=== PATIENT | female | born 1945 | race African-American/Black ===

== ENCOUNTER 2016-03-31 10:49 | Inpatient (IN) | payer MEDICARE, MEDICAID ==
[~2016-03-31] VITALS: Ht 175.3 cm; Wt 112.0 kg
[~2016-03-31 10:49] MED LIST: CLON1PAT11; DIOVAN PO; GLIMEPIRIDE PO; HUMALIN SUBCUT; HYDROCHLOROTHIAZIDE; INS7030 SUBCUT; INSULIN; IRON18TA PO; LISINOPRIL PO; SIMVASTATIN PO; [UNRECOGNIZED DRUG - OTHER] PO
[2016-03-31] MEDS ORDERED: ASPIRIN 81MG TABLET PO STA (11:14)
[2016-03-31] MEDS ORDERED: ONDANSETRON HCL 4MG/2ML VIAL IV STA (11:14)
[2016-03-31 11:36] LABS: BASOPHILS % 0.7 % (0.0-2.0); EOSINOPHILS % 1.8 % (0.0-5.0); HEMATOCRIT. 32.3 % (36.0-48.0); HEMOGLOBIN. 10.7 g/dL (12.0-16.0); LYMPHOCYTES % 14.8 % (20.0-50.0); MEAN CORPUSCULAR HEMOGLOBIN 28.3 pg (28.0-32.0); MEAN CORPUSCULAR HGB CONC 33.3 g/dL (31.0-37.0); MEAN CORPUSCULAR VOLUME 85.2 fL (81.0-99.0); MEAN PLATELET VOLUME 8.2 fl (7.4-10.4); MONOCYTES % 6.9 % (2.0-8.0); NEUTROPHILS % 75.8 % (40.0-76.0); PLATELET 272 x1000/uL (130-400); RED BLOOD CELL COUNT 3.79 mill/uL (4.2-5.4); RED CELL DISTRIBUTION WIDTH 14.9 % (11.6-14.6); WHITE BLOOD COUNT 11.4 x1000/uL (4.5-11.0)
[2016-03-31 11:53] LABS: ALANINE AMINOTRANSFERASE 17 IU/L (13-61); ALBUMIN 3.3 g/dL (3.4-5.0); ANION GAP 12; CALCIUM 8.8 mg/dL (8.5-10.1); CARBON DIOXIDE 21 mEq/L (21-32); CHLORIDE 111 mEq/L (98-107); CREATINE KINASE 146 IU/L (26-192); INDEX HEMOLYSI 4 (1-3); INDEX ICTERIC 1 (1-4); INDEX LIPEMIC 1 (1-3); LIPASE 125 IU/L (73-393); NT PRO B-TYPE NATRIURETIC PEP 493 pg/mL (5-125); TROPONIN I < 0.02 ng/mL (0.00-0.04); UREA NITROGEN BLOOD 28 mg/dL (7-21); eGFR 48 mL/min (>60)
[2016-03-31] MEDS ORDERED: ASPIRIN 81MG TABLET PO NR (12:00)
[2016-03-31 12:24] LABS: D-DIMER 0.76 mg/L FEU (<0.50); PARTIAL THROMBOPLASTIN TIME 26.8 sec (24.0-34.0)
[2016-03-31] MEDS ORDERED: AMLO10TA80 PO (14:59)
[2016-03-31] MEDS ORDERED: METO50TA5 PO (14:59)
[2016-03-31 15:02] VITALS: BP 130/74
[2016-03-31] MEDS ORDERED: HYDROCODONE/ACETAMINOPHEN 5/325MG TABLET PO PRN (15:45)
[2016-03-31] MEDS ORDERED: ACETAMINOPHEN 325MG TABLET PO PRN (15:45)
[2016-03-31] MEDS ORDERED: DEXTROSE 50% WATER 50ML SYRINGE IV PRN (15:45)
[2016-03-31] MEDS ORDERED: CLONIDINE 0.1MG TABLET PO PRN (15:45)
[2016-03-31] MEDS ORDERED: DOCUSATE SODIUM 100MG CAPSULE PO PRN (15:45)
[2016-03-31] MEDS ORDERED: ONDANSETRON HCL 4MG/2ML VIAL IV PRN (15:45)
[2016-03-31 16:00] VITALS: BP 130/86
[2016-03-31] MEDS: AMLODIPINE 10MG TABLET PO SCH (17:06)
[2016-03-31] MEDS: BLOOD SUGAR DIAGNOSTIC STRIP TEST SCH ×2 (17:13→21:00)
[2016-03-31 17:23] LABS: CLARITY URINE CLEAR (CLEAR); COLOR URINE YELLOW (YELLOW); GLUCOSE URINE NEGATIVE (NEGATIVE); KETONES URINE NEGATIVE (NEGATIVE); LEUKOCYTE ESTERASE URINE NEGATIVE (NEGATIVE); NITRITE URINE NEGATIVE (NEGATIVE); OCCULT BLOOD URINE NEGATIVE (NEGATIVE); PH URINE 5.5 (4.5-8.0); PROTEIN URINE NEGATIVE (NEGATIVE); SPECIFIC GRAVITY URINE 1.011 (1.005-1.030); UROBILINOGEN URINE 0.2 E.U./dL (0.2-1.0)
[2016-03-31] MEDS: INSULIN LISPRO 100 UNITS/ML SUBCUT SCH ×2 (17:25→21:00)
[2016-03-31 17:33] LABS: *AMPHETAMINES SCREEN URINE NEGATIVE (NEGATIVE); *BARBITURATES SCREEN URINE NEGATIVE (NEGATIVE); *BENZODIAZEPINES SCREEN URINE NEGATIVE (NEGATIVE); *COCAINE SCREEN URINE NEGATIVE (NEGATIVE); CANNABINOID URINE SCREEN NEGATIVE (NEGATIVE); ECSTASY MDMA SCREEN URINE NEGATIVE (NEGATIVE); METHADONE URINE SCREEN NEGATIVE (NEGATIVE); OPIATES URINE SCREEN NEGATIVE (NEGATIVE); PHENCYCLIDINE URINE SCREEN NEGATIVE (NEGATIVE)
[2016-03-31] MEDS: INS NPH/REG HM 70-30 100 UNITS/ML 10ML VIAL (HUMULIN 70-30) SUBCUT SCH (17:40)
[2016-03-31 20:00] VITALS: BP 147/71
[2016-03-31 21:09] LABS: CALCIUM 8.7 mg/dL (8.5-10.1)
[2016-03-31] MEDS: ENOXAPARIN 30MG/0.3ML SYR SUBCUT SCH (21:17)
[2016-03-31] MEDS: METOPROLOL TARTRATE 50MG TABLET PO SCH (21:17)
[2016-04-01 00:12] LABS: CREATINE KINASE 116 IU/L (26-192); CREATINE KINASE MB FRACTION 1.3 ng/mL (0.5-3.6); INDEX HEMOLYSI 1 (1-3); TROPONIN I < 0.02 ng/mL (0.00-0.04)
[2016-04-01 00:25] VITALS: BP 140/78
[2016-04-01 04:00] VITALS: BP 136/71
[2016-04-01 08:00] VITALS: BP 129/98
[2016-04-01] MEDS: INSULIN LISPRO 100 UNITS/ML SUBCUT SCH ×4 (08:10→20:47)
[2016-04-01 08:12] LABS: CHLORIDE 109 mEq/L (98-107); INDEX HEMOLYSI 1 (1-3); INDEX ICTERIC 1 (1-4); INDEX LIPEMIC 1 (1-3)
[2016-04-01] MEDS: BLOOD SUGAR DIAGNOSTIC STRIP TEST SCH ×4 (08:21→20:47)
[2016-04-01 08:33] LABS: ALANINE AMINOTRANSFERASE 13 IU/L (13-61); ANION GAP 16; CALCIUM 8.3 mg/dL (8.5-10.1); CARBON DIOXIDE 20 mEq/L (21-32); CREATINE KINASE 101 IU/L (26-192); CREATINE KINASE MB FRACTION 0.9 ng/mL (0.5-3.6); T4 FREE 1.14 ng/dL (0.76-1.46); TROPONIN I < 0.02 ng/mL (0.00-0.04); UREA NITROGEN BLOOD 24 mg/dL (7-21); eGFR 52 mL/min (>60)
[2016-04-01] MEDS: AMLODIPINE 10MG TABLET PO SCH (09:28)
[2016-04-01] MEDS: METOPROLOL TARTRATE 50MG TABLET PO SCH ×2 (09:28→20:43)
[2016-04-01] MEDS: ASPIRIN 81MG EC TABLET PO SCH (09:28)
[2016-04-01] MEDS: ENOXAPARIN 30MG/0.3ML SYR SUBCUT SCH ×2 (09:29→20:44)
[2016-04-01] MEDS: INS NPH/REG HM 70-30 100 UNITS/ML 10ML VIAL (HUMULIN 70-30) SUBCUT SCH ×2 (09:53→18:47)
[2016-04-01 12:00] VITALS: BP 130/91
[2016-04-01 16:00] VITALS: BP 116/81
[2016-04-01 20:00] VITALS: BP 121/89
[2016-04-02 00:03] VITALS: BP 118/62
[2016-04-02 04:00] VITALS: BP 141/89
[2016-04-02] MEDS: BLOOD SUGAR DIAGNOSTIC STRIP TEST SCH (07:39)
[2016-04-02] MEDS: INSULIN LISPRO 100 UNITS/ML SUBCUT SCH (07:40)
[2016-04-02 08:00] VITALS: BP 133/81
[2016-04-02] MEDS: METOPROLOL TARTRATE 50MG TABLET PO SCH (09:00)
[2016-04-02] MEDS: ENOXAPARIN 30MG/0.3ML SYR SUBCUT SCH (09:00)
[2016-04-02] MEDS: ASPIRIN 81MG EC TABLET PO SCH (10:06)
[2016-04-02] MEDS: AMLODIPINE 10MG TABLET PO SCH (10:06)
[2016-04-02] MEDS: INS NPH/REG HM 70-30 100 UNITS/ML 10ML VIAL (HUMULIN 70-30) SUBCUT SCH (10:18)
[2016-04-02 12:00] VITALS: BP 136/99
[2016-04-02 12:26] VITALS: BP 138/99
== END 2016-04-02 13:50 | disposition home or self-care (01) | DRG 313 ==
LOC: ER 12:05 → 7WST 12:58
PROVIDERS: ADMIT Internal Medicine; ATTEND Internal Medicine
DX: R07.89 Other chest pain (principal); E11.22 Type 2 diabetes mellitus with diabetic chronic kidney disease; E66.01 Morbid (severe) obesity due to excess calories; I12.9 Hypertensive chronic kidney disease with stage 1 through stage 4 chronic kidney disease, or unspecified chronic kidney disease; N18.2 Chronic kidney disease, stage 2 (mild); Z88.0 Allergy status to penicillin; Z88.8 Allergy status to other drugs, medicaments and biological substances; Z68.36 Body mass index [BMI] 36.0-36.9, adult; Z79.899 Other long term (current) drug therapy; Z90.49 Acquired absence of other specified parts of digestive tract; Z90.710 Acquired absence of both cervix and uterus
CPT/HCPCS: 36415; 71010; 80048; 80053; 80305; 81003; 82550; 82553; 82962; 83690; 83880; 84439; 84443; 84484; 85025; 85379; 85610; 85730; 93005; 93306; 93970; 99285; J1650; J1815

== ENCOUNTER 2016-10-24 13:52 | Emergency (ER) | payer MEDICARE, MEDICAID ==
[~2016-10-24] VITALS: Ht 175.3 cm; Wt 110.0 kg
[~2016-10-24 13:52] MED LIST changes: +AMLO10TA80 PO; +METO50TA5 PO
[2016-10-24 13:59] VITALS: BP 155/52
[2016-10-24] MEDS ORDERED: IBUPROFEN 600MG TABLET PO STA (15:46)
== END 2016-10-24 17:50 | disposition home or self-care (01) ==
LOC: ER 16:26
DX: M70.22 Olecranon bursitis, left elbow (principal); E11.9 Type 2 diabetes mellitus without complications; I10 Essential (primary) hypertension; E78.00 Pure hypercholesterolemia, unspecified; Z79.4 Long term (current) use of insulin; Z90.49 Acquired absence of other specified parts of digestive tract; Z90.710 Acquired absence of both cervix and uterus
CPT/HCPCS: 73080; 99284

== ENCOUNTER 2016-12-10 16:40 | Emergency (ER) | payer MEDICARE, MEDICAID ==
[~2016-12-10] VITALS: Ht 172.7 cm; Wt 110.0 kg
[2016-12-10] MEDS ORDERED: ASPIRIN 81MG TABLET PO ONE (18:30)
[2016-12-10 18:42] LABS: BASOPHILS % 0.5 % (0.0-2.0); EOSINOPHILS % 1.7 % (0.0-5.0); HEMATOCRIT. 32.2 % (36.0-48.0); HEMOGLOBIN. 10.7 g/dL (12.0-16.0); LYMPHOCYTES % 14.3 % (20.0-50.0); MEAN CORPUSCULAR HEMOGLOBIN 28.6 pg (28.0-32.0); MEAN CORPUSCULAR VOLUME 85.9 fL (81.0-99.0); MEAN PLATELET VOLUME 7.9 fl (7.4-10.4); MONOCYTES % 8.6 % (2.0-8.0); NEUTROPHILS % 74.9 % (40.0-76.0); PLATELET 215 x1000/uL (130-400); RED BLOOD CELL COUNT 3.75 mill/uL (4.2-5.4); RED CELL DISTRIBUTION WIDTH 14.5 % (11.6-14.6)
[2016-12-10 18:47] LABS: CARBON DIOXIDE 23 mEq/L (21-32); CHLORIDE 110 mEq/L (98-107)
[2016-12-10 18:49] LABS: D-DIMER 0.88 mg/L FEU (<0.50); PROTHROMBIN TIME 10.3 sec (9.4-11.6)
[2016-12-10 18:54] LABS: TROPONIN I < 0.02 ng/mL (0.00-0.04)
[2016-12-10 22:05] VITALS: BP 130/50
== END 2016-12-10 22:32 | disposition home or self-care (01) ==
LOC: ER 20:14 → CANBEDREQ 23:36
DX: M79.602 Pain in left arm (principal); E11.65 Type 2 diabetes mellitus with hyperglycemia; I10 Essential (primary) hypertension; N28.9 Disorder of kidney and ureter, unspecified; D64.9 Anemia, unspecified; Z79.4 Long term (current) use of insulin; Z88.0 Allergy status to penicillin; Z90.710 Acquired absence of both cervix and uterus; Z90.49 Acquired absence of other specified parts of digestive tract
CPT/HCPCS: 36415; 71010; 80053; 83880; 84484; 85025; 85379; 85610; 93005; 93971; 99285

== ENCOUNTER → 2017-02-21 | Outpatient (CLI) | payer MEDICARE, MEDICAID ==
[~2017-02-21] MED LIST changes: +METO-539 PO; -METO50TA5 PO
== END | disposition home or self-care (01) ==
LOC: MAMMO 09:43
PROVIDERS: ATTEND Internal Medicine
DX: Z12.31 Encounter for screening mammogram for malignant neoplasm of breast (principal)
CPT/HCPCS: 77067

== ENCOUNTER 2018-04-24 14:07 | Emergency (ER) | payer MEDICARE, MEDICAID ==
[~2018-04-24] VITALS: Ht 175.3 cm; Wt 112.0 kg
[2018-04-24 15:31] LABS: CLARITY URINE CLOUDY (CLEAR); COLOR URINE YELLOW (YELLOW); KETONES URINE NEGATIVE (NEGATIVE); LEUKOCYTE ESTERASE URINE 1+ (NEGATIVE); NITRITE URINE NEGATIVE (NEGATIVE); OCCULT BLOOD URINE NEGATIVE (NEGATIVE); PH URINE 5.5 (4.5-8.0); PROTEIN URINE NEGATIVE (NEGATIVE); SPECIFIC GRAVITY URINE 1.016 (1.005-1.030)
[2018-04-24] MEDS ORDERED: LEVOFLOXACIN 500MG TABLET PO ONE (15:45)
[2018-04-24 16:35] VITALS: BP 138/66
== END 2018-04-24 16:40 | disposition home or self-care (01) ==
LOC: ER 14:07
DX: N39.0 Urinary tract infection, site not specified (principal); I10 Essential (primary) hypertension; E66.01 Morbid (severe) obesity due to excess calories; Z68.36 Body mass index [BMI] 36.0-36.9, adult
CPT/HCPCS: 74176; 99284

== ENCOUNTER 2018-12-11 13:13 | Emergency (ER) | payer MEDICARE, MEDICAID ==
[~2018-12-11] VITALS: Ht 175.3 cm; Wt 108.0 kg
[2018-12-11] MEDS ORDERED: SODIUM CHLORIDE 0.9% 1,000 ML IV ONE (15:46)
[2018-12-11 16:44] LABS: CLARITY URINE CLEAR (CLEAR); COLOR URINE YELLOW (YELLOW); KETONES URINE NEGATIVE (NEGATIVE); LEUKOCYTE ESTERASE URINE NEGATIVE (NEGATIVE); NITRITE URINE NEGATIVE (NEGATIVE); OCCULT BLOOD URINE NEGATIVE (NEGATIVE); PROTEIN URINE NEGATIVE (NEGATIVE); SPECIFIC GRAVITY URINE 1.015 (1.005-1.030)
[2018-12-11 17:13] LABS: BASOPHILS % 0.7 % (0.0-2.0); EOSINOPHILS % 1.4 % (0.0-5.0); HEMATOCRIT. 34.2 % (36.0-48.0); LYMPHOCYTES % 14.7 % (20.0-50.0); MEAN CORPUSCULAR HEMOGLOBIN 28.7 pg (28.0-32.0); MEAN CORPUSCULAR VOLUME 89.1 fL (81.0-99.0); MEAN PLATELET VOLUME 8.2 fl (7.4-10.4); MONOCYTES % 8.9 % (2.0-8.0); NEUTROPHILS % 74.3 % (40.0-76.0); PLATELET 226 x1000/uL (130-400); RED BLOOD CELL COUNT 3.84 mill/uL (4.2-5.4)
[2018-12-11 17:14] LABS: CHLORIDE 112 mEq/L (98-107)
[2018-12-11 17:17] LABS: INR 0.9; PROTHROMBIN TIME 9.5 sec (9.6-11.0)
[2018-12-11] MEDS ORDERED: IOHEXOL-300 100 ML BOTTLE ONE (18:55)
[2018-12-11] MEDS ORDERED: KETOROLAC 30MG/ML VIAL IV ONE (19:30)
[2018-12-11 20:22] VITALS: BP 161/84
== END 2018-12-11 20:29 | disposition home or self-care (01) ==
LOC: ER 13:13
DX: R10.31 Right lower quadrant pain (principal); E11.649 Type 2 diabetes mellitus with hypoglycemia without coma; I10 Essential (primary) hypertension; Z90.49 Acquired absence of other specified parts of digestive tract; Z90.710 Acquired absence of both cervix and uterus; Z79.4 Long term (current) use of insulin; Z88.0 Allergy status to penicillin
CPT/HCPCS: 36415; 74177; 80053; 81003; 82962; 83690; 85025; 85610; 96374; 99284; J1885; J7030; Q9967

== ENCOUNTER 2018-12-24 12:16 | Inpatient (IN) | payer MEDICARE, MEDICAID ==
[~2018-12-24] VITALS: Ht 175.3 cm; Wt 108.0 kg
[2018-12-24] MEDS ORDERED: MORPHINE SULFATE 4 MG/ML CPJ (NOT FOR IM USE) IV STA (14:24)
[2018-12-24] MEDS ORDERED: ONDANSETRON HCL 4MG/2ML INJ IV STA (14:24)
[2018-12-24] MEDS ORDERED: SODIUM CHLORIDE 0.9% 1,000 ML IV ONE (14:24)
[2018-12-24 15:14] LABS: BASOPHILS % 0.7 % (0.0-2.0); EOSINOPHILS % 0.6 % (0.0-5.0); HEMATOCRIT. 33.4 % (36.0-48.0); LYMPHOCYTES % 8.9 % (20.0-50.0); MEAN CORPUSCULAR HEMOGLOBIN 29.3 pg (28.0-32.0); MEAN CORPUSCULAR VOLUME 89.2 fL (81.0-99.0); MEAN PLATELET VOLUME 7.7 fl (7.4-10.4); MONOCYTES % 7.8 % (2.0-8.0); PLATELET 245 x1000/uL (130-400); RED BLOOD CELL COUNT 3.74 mill/uL (4.2-5.4); RED CELL DISTRIBUTION WIDTH 15.6 % (11.6-14.6)
[2018-12-24 15:15] LABS: CHLORIDE 109 mEq/L (98-107)
[2018-12-24 15:22] LABS: PROTHROMBIN TIME 10.2 sec (9.6-11.0)
[2018-12-24 15:23] LABS: CLARITY URINE CLOUDY (CLEAR); COLOR URINE YELLOW (YELLOW); KETONES URINE NEGATIVE (NEGATIVE); LEUKOCYTE ESTERASE URINE NEGATIVE (NEGATIVE); NITRITE URINE NEGATIVE (NEGATIVE); OCCULT BLOOD URINE NEGATIVE (NEGATIVE); PH URINE 5.5 (4.5-8.0); PROTEIN URINE TRACE (NEGATIVE); SPECIFIC GRAVITY URINE 1.015 (1.005-1.030)
[2018-12-24] MEDS ORDERED: ACETAMINOPHEN 650MG SUPP PR PRN (17:00)
[2018-12-24] MEDS ORDERED: NA PHOS,M-B/NA PHOS,DI-BA ENEMA 118ML PR PRN (17:00)
[2018-12-24] MEDS ORDERED: LORAZEPAM 0.5MG TABLET PO PRN (17:00)
[2018-12-24] MEDS ORDERED: IPRATROPIUM/ALBUTEROL 0.5-3(2.5)MG/3ML NEB NEB PRN (17:00)
[2018-12-24] MEDS ORDERED: DOCUSATE SODIUM 100MG CAPSULE PO PRN (17:00)
[2018-12-24] MEDS ORDERED: ONDANSETRON HCL 4MG/2ML INJ IV PRN (17:00)
[2018-12-24] MEDS ORDERED: DEXTROSE 50% WATER 50ML SYRINGE IV PRN (17:00)
[2018-12-24] MEDS ORDERED: GUAIFENESIN 200MG/10ML SUGAR FREE UDC PO PRN (17:00)
[2018-12-24] MEDS ORDERED: DIPHENHYDRAMINE 50MG/ML VIAL IV PRN (17:00)
[2018-12-24] MEDS ORDERED: ACETAMINOPHEN 325MG TABLET PO PRN (17:00)
[2018-12-24] MEDS ORDERED: HYDROCODONE/ACETAMINOPHEN 5/325MG TABLET PO PRN (17:00)
[2018-12-24] MEDS ORDERED: CLONIDINE 0.1MG TABLET PO PRN (17:00)
[2018-12-24] MEDS ORDERED: MAGNESIUM/ALUMINUM HYDROXIDE/SIMETHICONE 30ML UDC PO PRN (17:00)
[2018-12-24] MEDS ORDERED: MORPHINE SULFATE 2 MG/ML CPJ (NOT FOR IM USE) IV PRN (17:00)
[2018-12-24] MEDS ORDERED: BLOOD SUGAR DIAGNOSTIC STRIP TEST SCH (18:15)
[2018-12-24] MEDS ORDERED: LEVOFLOXACIN 500MG PREMIX 100 ML IV NR (18:30)
[2018-12-25] MEDS: INSULIN LISPRO 100 UNITS/ML SUBCUT SCH ×3 (00:14→12:37)
[2018-12-25 00:45] VITALS: BP 151/55
[2018-12-25 02:53] VITALS: BP 151/55
[2018-12-25 04:00] VITALS: BP 124/54
[2018-12-25 06:40] LABS: BASOPHILS % 0.4 % (0.0-2.0); EOSINOPHILS % 0.8 % (0.0-5.0); HEMATOCRIT. 30.7 % (36.0-48.0); HEMOGLOBIN. 10.1 g/dL (12.0-16.0); LYMPHOCYTES % 9.4 % (20.0-50.0); MEAN CORPUSCULAR HEMOGLOBIN 29.1 pg (28.0-32.0); MEAN CORPUSCULAR VOLUME 88.3 fL (81.0-99.0); MEAN PLATELET VOLUME 7.9 fl (7.4-10.4); MONOCYTES % 8.6 % (2.0-8.0); NEUTROPHILS % 80.8 % (40.0-76.0); PLATELET 237 x1000/uL (130-400); RED BLOOD CELL COUNT 3.48 mill/uL (4.2-5.4); RED CELL DISTRIBUTION WIDTH 15.7 % (11.6-14.6)
[2018-12-25 06:52] LABS: CHLORIDE 111 mEq/L (98-107)
[2018-12-25 07:03] LABS: LDL CHOLESTEROL 57 mg/dL (5-100)
[2018-12-25 07:05] LABS: HDL CHOLESTEROL 39 mg/dL (40-59); T4 FREE 1.25 ng/dL (0.76-1.46)
[2018-12-25 08:00] VITALS: BP 126/63
[2018-12-25] MEDS ORDERED: ENOXAPARIN 30MG/0.3ML SYR SUBCUT SCH (09:00)
[2018-12-25 15:25] VITALS: BP 99/64
[2018-12-25] MEDS ORDERED: LEVOFLOXACIN 250MG PREMIX 50 ML IV SCH ×2 (18:00)
== END 2018-12-25 16:11 | disposition home or self-care (01) | DRG 552 ==
LOC: ER 12:16 → 6EST 16:41 → ENRESERV 23:51
PROVIDERS: ADMIT Internal Medicine; ATTEND Internal Medicine
DX: M51.26 Other intervertebral disc displacement, lumbar region (principal); N39.0 Urinary tract infection, site not specified; D64.9 Anemia, unspecified; E11.9 Type 2 diabetes mellitus without complications; E78.5 Hyperlipidemia, unspecified; G89.29 Other chronic pain; M47.816 Spondylosis without myelopathy or radiculopathy, lumbar region; I10 Essential (primary) hypertension; Z79.4 Long term (current) use of insulin; Z79.899 Other long term (current) drug therapy; Z90.710 Acquired absence of both cervix and uterus; Z88.0 Allergy status to penicillin; Z88.8 Allergy status to other drugs, medicaments and biological substances; Z90.49 Acquired absence of other specified parts of digestive tract
CPT/HCPCS: 36415; 72146; 72148; 80061; 81003; 82962; 83036; 83605; 84439; 84443; 93970; 96361; 96365; 96366; 96372; 96375; 97162; 97535; 99285; J1650; J1815; J1956; J2270; J2405; J7030

== ENCOUNTER 2019-10-10 18:32 | Inpatient (IN) | payer MEDICARE, MEDICAID ==
[~2019-10-10] VITALS: Ht 175.3 cm; Wt 109.8 kg
[~2019-10-10 18:32] MED LIST changes: +ALLO100T PO; +ASPI-1497 MT; +OMEP40CA12 PO; +SITA100T11 PO
[2019-10-10] MEDS ORDERED: NITROGLYCERIN 0.4MG TABLET SL SL PRN (19:30)
[2019-10-10] MEDS ORDERED: ASPIRIN 81MG TABLET PO ONE (19:30)
[2019-10-10 21:01] LABS: BASOPHILS % 1.4 % (0.0-2.0); EOSINOPHILS % 1.7 % (0.0-5.0); LYMPHOCYTES % 12.1 % (20.0-50.0); MEAN CORPUSCULAR HEMOGLOBIN 29.6 pg (28.0-32.0); MEAN CORPUSCULAR VOLUME 88.9 fL (81.0-99.0); MONOCYTES % 7.5 % (2.0-8.0); NEUTROPHILS % 77.3 % (40.0-76.0); PLATELET 208 x1000/uL (130-400); RED BLOOD CELL COUNT 3.72 mill/uL (4.2-5.4); RED CELL DISTRIBUTION WIDTH 15.2 % (11.6-14.6)
[2019-10-10 21:03] LABS: CHLORIDE 112 mEq/L (98-107)
[2019-10-10 21:09] LABS: D-DIMER 1.73 mg/L FEU (<0.50); INR 0.9; PARTIAL THROMBOPLASTIN TIME 23.1 sec (23.4-31.0)
[2019-10-10 23:46] VITALS: BP 127/63
[2019-10-11] VITALS: BP 127/63
[2019-10-11] MEDS ORDERED: FERR325T6 MT (01:08)
[2019-10-11] MEDS ORDERED: SIMV-46 MT (01:08)
[2019-10-11] MEDS ORDERED: INS7030 SUBCUT (01:08)
[2019-10-11] MEDS ORDERED: HYDR100T26 MT (01:08)
[2019-10-11] MEDS ORDERED: GLIM4TAB36 MT (01:08)
[2019-10-11] MEDS ORDERED: DEXTROSE 50% WATER 50ML SYRINGE IV PRN (01:30)
[2019-10-11] MEDS ORDERED: HYDROCODONE/ACETAMINOPHEN 5/325MG TABLET PO PRN (01:30)
[2019-10-11 04:30] VITALS: BP 131/53
[2019-10-11] MEDS ORDERED: HYDRALAZINE HCL 100MG TABLET PO SCH (06:00)
[2019-10-11] MEDS: OMEPRAZOLE 20MG CAPSULE EXTENDED RELEASE PO SCH (06:50)
[2019-10-11] MEDS: BLOOD SUGAR DIAGNOSTIC STRIP TEST SCH ×4 (06:54→20:10)
[2019-10-11 07:51] LABS: BASOPHILS % 0.5 % (0.0-2.0); EOSINOPHILS % 1.7 % (0.0-5.0); HEMATOCRIT. 31.7 % (36.0-48.0); HEMOGLOBIN. 10.4 g/dL (12.0-16.0); LYMPHOCYTES % 10.9 % (20.0-50.0); MEAN CORPUSCULAR HEMOGLOBIN 29.3 pg (28.0-32.0); MEAN CORPUSCULAR VOLUME 89.2 fL (81.0-99.0); MEAN PLATELET VOLUME 8.4 fl (7.4-10.4); NEUTROPHILS % 79.9 % (40.0-76.0); PLATELET 209 x1000/uL (130-400); RED BLOOD CELL COUNT 3.55 mill/uL (4.2-5.4); RED CELL DISTRIBUTION WIDTH 15.5 % (11.6-14.6)
[2019-10-11 07:55] LABS: CHLORIDE 111 mEq/L (98-107)
[2019-10-11 08:00] VITALS: BP 124/53
[2019-10-11 08:14] LABS: CREATINE KINASE 78 IU/L (26-192)
[2019-10-11 08:15] LABS: LDL CHOLESTEROL 60 mg/dL (5-100)
[2019-10-11 08:17] LABS: HDL CHOLESTEROL 36 mg/dL (40-59)
[2019-10-11 08:20] LABS: CREATINE KINASE MB FRACTION < 1.0 ng/mL (0.5-3.6)
[2019-10-11] MEDS: METOPROLOL TARTRATE 50MG TABLET PO SCH ×2 (08:27→20:20)
[2019-10-11] MEDS: AMLODIPINE 10MG TABLET PO SCH (08:27)
[2019-10-11] MEDS: ALLOPURINOL 100 MG TABLET PO SCH (08:27)
[2019-10-11] MEDS: ASPIRIN 81MG TABLET PO SCH (08:28)
[2019-10-11] MEDS: GLIMEPIRIDE 2MG TABLET PO SCH ×2 (08:28→17:58)
[2019-10-11] MEDS: LINAGLIPTIN 5MG TABLET PO SCH (08:28)
[2019-10-11] MEDS: ENOXAPARIN 30MG/0.3ML SYR SUBCUT SCH ×2 (08:29→20:20)
[2019-10-11] MEDS: INSULIN LISPRO 100 UNITS/ML SUBCUT SCH ×4 (08:36→20:22)
[2019-10-11 12:00] VITALS: BP 109/44
[2019-10-11 15:26] LABS: CLARITY URINE CLEAR (CLEAR); COLOR URINE YELLOW (YELLOW); KETONES URINE NEGATIVE (NEGATIVE); LEUKOCYTE ESTERASE URINE NEGATIVE (NEGATIVE); NITRITE URINE NEGATIVE (NEGATIVE); OCCULT BLOOD URINE NEGATIVE (NEGATIVE); PH URINE 5.5 (4.5-8.0); PROTEIN URINE NEGATIVE (NEGATIVE); SPECIFIC GRAVITY URINE 1.015 (1.005-1.030)
[2019-10-11 15:44] LABS: CREATINE KINASE 71 IU/L (26-192)
[2019-10-11 15:45] LABS: CREATINE KINASE MB FRACTION < 1.0 ng/mL (0.5-3.6)
[2019-10-11 16:00] VITALS: BP 104/48
[2019-10-11 20:00] VITALS: BP 125/57
[2019-10-11] MEDS: HYDRALAZINE HCL 100MG TABLET PO SCH (20:20)
[2019-10-11] MEDS ORDERED: ATORVASTATIN CALCIUM 20MG TABLET PO SCH (21:00)
[2019-10-11 23:34] LABS: CREATINE KINASE 78 IU/L (26-192)
[2019-10-11 23:35] LABS: CREATINE KINASE MB FRACTION < 1.0 ng/mL (0.5-3.6)
[2019-10-12] VITALS: BP 121/52
[2019-10-12 04:00] VITALS: BP 136/52
[2019-10-12 06:13] LABS: BASOPHILS % 0.6 % (0.0-2.0); EOSINOPHILS % 2.1 % (0.0-5.0); HEMATOCRIT. 30.7 % (36.0-48.0); HEMOGLOBIN. 10.2 g/dL (12.0-16.0); LYMPHOCYTES % 15.7 % (20.0-50.0); MEAN CORPUSCULAR HEMOGLOBIN 29.5 pg (28.0-32.0); MEAN CORPUSCULAR VOLUME 89.1 fL (81.0-99.0); MEAN PLATELET VOLUME 8.6 fl (7.4-10.4); MONOCYTES % 7.4 % (2.0-8.0); NEUTROPHILS % 74.2 % (40.0-76.0); PLATELET 200 x1000/uL (130-400); RED BLOOD CELL COUNT 3.44 mill/uL (4.2-5.4); RED CELL DISTRIBUTION WIDTH 15.3 % (11.6-14.6)
[2019-10-12] MEDS: OMEPRAZOLE 20MG CAPSULE EXTENDED RELEASE PO SCH (06:20)
[2019-10-12] MEDS: BLOOD SUGAR DIAGNOSTIC STRIP TEST SCH ×2 (06:20→12:31)
[2019-10-12 08:00] VITALS: BP 117/54
[2019-10-12] MEDS: ASPIRIN 81MG TABLET PO SCH (08:22)
[2019-10-12] MEDS: HYDRALAZINE HCL 100MG TABLET PO SCH (08:22)
[2019-10-12] MEDS: LINAGLIPTIN 5MG TABLET PO SCH (08:22)
[2019-10-12] MEDS: AMLODIPINE 10MG TABLET PO SCH (08:22)
[2019-10-12] MEDS: ALLOPURINOL 100 MG TABLET PO SCH (08:22)
[2019-10-12] MEDS: GLIMEPIRIDE 2MG TABLET PO SCH (08:22)
[2019-10-12] MEDS: METOPROLOL TARTRATE 50MG TABLET PO SCH (08:23)
[2019-10-12] MEDS: ENOXAPARIN 30MG/0.3ML SYR SUBCUT SCH (08:24)
[2019-10-12] MEDS: INSULIN LISPRO 100 UNITS/ML SUBCUT SCH ×2 (08:25→12:41)
[2019-10-12 11:57] VITALS: BP 117/43
[2019-10-12 12:59] VITALS: BP 117/60
[2019-10-15] MEDS ORDERED: CLONIDINE HCL 0.2MG/24HR PATCH TD SCH (09:00)
== END 2019-10-12 14:20 | disposition home or self-care (01) | DRG 205 ==
LOC: ER 18:32 → 6WST 21:29 → EDBEDREQ 21:56 → EDBEDREQTM 21:57 → ENRESERV 22:19
PROVIDERS: ADMIT Internal Medicine; ATTEND Internal Medicine
DX: M94.0 Chondrocostal junction syndrome [Tietze] (principal); N17.0 Acute kidney failure with tubular necrosis; E87.8 Other disorders of electrolyte and fluid balance, not elsewhere classified; E78.5 Hyperlipidemia, unspecified; D64.9 Anemia, unspecified; E11.9 Type 2 diabetes mellitus without complications; I10 Essential (primary) hypertension; Z86.711 Personal history of pulmonary embolism; Z90.710 Acquired absence of both cervix and uterus; Z88.1 Allergy status to other antibiotic agents; Z88.0 Allergy status to penicillin; Z88.8 Allergy status to other drugs, medicaments and biological substances; Z79.899 Other long term (current) drug therapy
CPT/HCPCS: 36415; 71045; 80048; 80053; 80061; 81003; 82550; 82553; 82962; 83036; 83880; 84484; 85025; 85379; 93005; 93970; 99285; J1650; J1815

== ENCOUNTER 2019-12-08 12:54 | Emergency (ER) | payer MEDICARE, MEDICAID ==
[~2019-12-08] VITALS: Ht 175.3 cm; Wt 107.0 kg
[~2019-12-08 12:54] MED LIST changes: -ASPI-1497 MT; -DIOVAN PO; +FERR325T6 MT; +GLIM4TAB36 MT; -GLIMEPIRIDE PO; -HUMALIN SUBCUT; +HYDR100T26 MT; -HYDROCHLOROTHIAZIDE; -INSULIN; -IRON18TA PO; -LISINOPRIL PO; +SIMV-46 MT; -SIMVASTATIN PO; -[UNRECOGNIZED DRUG - OTHER] PO
[2019-12-08] MEDS ORDERED: ASPIRIN 81MG TABLET PO ONE (16:00)
[2019-12-08 16:29] LABS: BASOPHILS % 0.7 % (0.0-2.0); EOSINOPHILS % 1.5 % (0.0-5.0); HEMATOCRIT. 34.3 % (36.0-48.0); HEMOGLOBIN. 11.4 g/dL (12.0-16.0); LYMPHOCYTES % 13.9 % (20.0-50.0); MEAN CORPUSCULAR HEMOGLOBIN 29.8 pg (28.0-32.0); MEAN CORPUSCULAR VOLUME 89.6 fL (81.0-99.0); NEUTROPHILS % 76.9 % (40.0-76.0); PLATELET 245 x1000/uL (130-400); RED BLOOD CELL COUNT 3.82 mill/uL (4.2-5.4); RED CELL DISTRIBUTION WIDTH 15.6 % (11.6-14.6)
[2019-12-08 16:30] LABS: CHLORIDE 112 mEq/L (98-107)
[2019-12-08 22:00] VITALS: BP 131/74
== END 2019-12-08 22:00 | disposition home or self-care (01) ==
LOC: ER 12:54
DX: M25.512 Pain in left shoulder (principal); R00.1 Bradycardia, unspecified; I10 Essential (primary) hypertension; E11.9 Type 2 diabetes mellitus without complications; E78.5 Hyperlipidemia, unspecified; Z79.899 Other long term (current) drug therapy; Z79.4 Long term (current) use of insulin; Z88.0 Allergy status to penicillin; Z88.8 Allergy status to other drugs, medicaments and biological substances
CPT/HCPCS: 36415; 71045; 80053; 82962; 83880; 84484; 85025; 93005; 99285

== ENCOUNTER 2020-03-27 13:59 | Emergency (ER) | payer MEDICARE, MEDICAID ==
[~2020-03-27] VITALS: Ht 175.3 cm; Wt 104.0 kg
[~2020-03-27 13:59] MED LIST changes: -GLIM4TAB36 MT
[2020-03-27 15:37] LABS: CHLORIDE 107 mEq/L (98-107)
[2020-03-27 15:44] LABS: CLARITY URINE CLOUDY (CLEAR); COLOR URINE YELLOW (YELLOW); KETONES URINE NEGATIVE (NEGATIVE); LEUKOCYTE ESTERASE URINE 1+ (NEGATIVE); NITRITE URINE NEGATIVE (NEGATIVE); OCCULT BLOOD URINE NEGATIVE (NEGATIVE); PROTEIN URINE NEGATIVE (NEGATIVE); SPECIFIC GRAVITY URINE 1.015 (1.005-1.030); UROBILINOGEN URINE 0.2 E.U./dL (0.2-1.0)
[2020-03-27 16:09] LABS: BASOPHILS % 0.7 % (0.0-2.0); EOSINOPHILS % 1.3 % (0.0-5.0); HEMOGLOBIN. 11.3 g/dL (12.0-16.0); LYMPHOCYTES % 14.7 % (20.0-50.0); MEAN CORPUSCULAR HEMOGLOBIN 29.5 pg (28.0-32.0); MEAN CORPUSCULAR VOLUME 88.7 fL (81.0-99.0); MONOCYTES % 7.8 % (2.0-8.0); NEUTROPHILS % 75.5 % (40.0-76.0); PLATELET 228 x1000/uL (130-400); RED BLOOD CELL COUNT 3.83 mill/uL (4.2-5.4); RED CELL DISTRIBUTION WIDTH 15.2 % (11.6-14.6)
[2020-03-27] MEDS ORDERED: SULF1TAB44 MT (17:09)
[2020-03-27 17:11] VITALS: BP 159/67
== END 2020-03-27 17:12 | disposition home or self-care (01) ==
LOC: ER 13:59
DX: N39.0 Urinary tract infection, site not specified (principal); N12 Tubulo-interstitial nephritis, not specified as acute or chronic; I10 Essential (primary) hypertension; E11.9 Type 2 diabetes mellitus without complications; E78.00 Pure hypercholesterolemia, unspecified; Z79.4 Long term (current) use of insulin; Z90.49 Acquired absence of other specified parts of digestive tract; Z90.710 Acquired absence of both cervix and uterus; Z88.0 Allergy status to penicillin
CPT/HCPCS: 36415; 76770; 80053; 81003; 85025; 93005; 99284

== ENCOUNTER 2021-04-16 10:11 | Emergency (ER) | payer MEDICARE, MEDICAID ==
[~2021-04-16] VITALS: Ht 175.3 cm; Wt 106.0 kg
[~2021-04-16 10:11] MED LIST changes: -OMEP40CA12 PO; +OMEP40CA20 PO; +SULF1TAB44 MT
[2021-04-16] MEDS ORDERED: IBUPROFEN 600MG TABLET PO STA (10:28)
[2021-04-16 11:06] LABS: BASOPHILS % 0.4 % (0.0-2.0); EOSINOPHILS % 1.5 % (0.0-5.0); HEMATOCRIT. 32.8 % (36.0-48.0); HEMOGLOBIN. 10.9 g/dL (12.0-16.0); LYMPHOCYTES % 12.5 % (20.0-50.0); MEAN CORPUSCULAR HEMOGLOBIN 29.4 pg (28.0-32.0); MEAN CORPUSCULAR VOLUME 88.5 fL (81.0-99.0); MEAN PLATELET VOLUME 7.5 fl (7.4-10.4); MONOCYTES % 7.1 % (2.0-8.0); NEUTROPHILS % 78.5 % (40.0-76.0); PLATELET 219 x1000/uL (130-400); RED CELL DISTRIBUTION WIDTH 15.1 % (11.6-14.6)
[2021-04-16 11:23] LABS: CHLORIDE 110 mEq/L (98-107)
[2021-04-16 12:15] VITALS: BP 135/57
[2021-04-16] MEDS ORDERED: IBUP-2029 MT (12:23)
[2021-04-16] MEDS ORDERED: CYCL10TA7 MT (12:23)
== END 2021-04-16 12:30 | disposition home or self-care (01) ==
LOC: ER 10:14
DX: R07.89 Other chest pain (principal); M54.12 Radiculopathy, cervical region; E11.9 Type 2 diabetes mellitus without complications; I10 Essential (primary) hypertension; Z90.49 Acquired absence of other specified parts of digestive tract; Z90.710 Acquired absence of both cervix and uterus; Z79.4 Long term (current) use of insulin; Z88.0 Allergy status to penicillin
CPT/HCPCS: 36415; 71045; 80053; 83880; 84484; 85025; 93005; 99285

== ENCOUNTER 2021-08-13 14:49 | Emergency (ER) | payer MEDICARE, MEDICAID ==
[~2021-08-13] VITALS: Ht 177.8 cm; Wt 81.0 kg
[~2021-08-13 14:49] MED LIST changes: +CYCL10TA21 MT; +IBUP-2029 MT
[2021-08-13 15:01] VITALS: BP 115/48
[2021-08-13 21:48] LABS: CLARITY URINE TURBID (CLEAR); COLOR URINE YELLOW (YELLOW); KETONES URINE TRACE (NEGATIVE); LEUKOCYTE ESTERASE URINE 3+ (NEGATIVE); NITRITE URINE NEGATIVE (NEGATIVE); OCCULT BLOOD URINE NEGATIVE (NEGATIVE); PH URINE 5.5 (4.5-8.0); PROTEIN URINE 2+ (NEGATIVE); SPECIFIC GRAVITY URINE 1.018 (1.005-1.030)
[2021-08-13] MEDS ORDERED: SULF1TAB44 MT (22:52)
[2021-08-13] MEDS ORDERED: CEFUROXIME AXETIL 500MG TABLET PO NR (23:00)
[2021-08-13] MEDS ORDERED: CEFUROXIME AXETIL 250MG TABLET PO NR (23:00)
[2021-08-13] MEDS ORDERED: SULFAMETHOXAZOLE/TRIMETHOPRIM 800/160MG TABLET PO NR (23:30)
== END 2021-08-13 23:12 | disposition home or self-care (01) ==
LOC: ER 14:57
DX: S92.515A Nondisplaced fracture of proximal phalanx of left lesser toe(s), initial encounter for closed fracture (principal); N39.0 Urinary tract infection, site not specified; I10 Essential (primary) hypertension; E11.9 Type 2 diabetes mellitus without complications; E78.00 Pure hypercholesterolemia, unspecified; Z79.4 Long term (current) use of insulin; Z90.49 Acquired absence of other specified parts of digestive tract; Z90.710 Acquired absence of both cervix and uterus; Z88.8 Allergy status to other drugs, medicaments and biological substances; Z88.0 Allergy status to penicillin; W22.03XA Walked into furniture, initial encounter; Y93.89 Activity, other specified; Y92.018 Other place in single-family (private) house as the place of occurrence of the external cause
CPT/HCPCS: 73660; 81003; 99284

== ENCOUNTER 2021-08-20 13:34 | Emergency (ER) | payer MEDICARE, MEDICAID ==
[~2021-08-20] VITALS: Ht 175.3 cm; Wt 109.0 kg
[2021-08-20] MEDS ORDERED: ONDANSETRON HCL 4MG/2ML INJ IV STA (14:30)
[2021-08-20] MEDS ORDERED: MORPHINE SULFATE 4 MG/ML CPJ (NOT FOR IM USE) IV STA (14:30)
[2021-08-20] MEDS ORDERED: KETOROLAC 30MG/ML VIAL IV STA (14:30)
[2021-08-20] MEDS ORDERED: SODIUM CHLORIDE 0.9% 1,000 ML IV ONE (14:30)
[2021-08-20] MEDS ORDERED: LEVOFLOXACIN 750MG PREMIX 150 ML IV ONE (14:45)
[2021-08-20 15:03] LABS: CLARITY URINE CLEAR (CLEAR); COLOR URINE YELLOW (YELLOW); KETONES URINE NEGATIVE (NEGATIVE); LEUKOCYTE ESTERASE URINE NEGATIVE (NEGATIVE); NITRITE URINE NEGATIVE (NEGATIVE); OCCULT BLOOD URINE NEGATIVE (NEGATIVE); PH URINE 5.5 (4.5-8.0); PROTEIN URINE NEGATIVE (NEGATIVE); SPECIFIC GRAVITY URINE 1.016 (1.005-1.030); UROBILINOGEN URINE 0.2 E.U./dL (0.2-1.0)
[2021-08-20 15:10] LABS: BASOPHILS % 0.6 % (0.0-2.0); EOSINOPHILS % 2.1 % (0.0-5.0); HEMATOCRIT. 30.3 % (36.0-48.0); HEMOGLOBIN. 9.8 g/dL (12.0-16.0); LYMPHOCYTES % 17.1 % (20.0-50.0); MEAN CORPUSCULAR HEMOGLOBIN 29.4 pg (28.0-32.0); MEAN CORPUSCULAR VOLUME 90.9 fL (81.0-99.0); MEAN PLATELET VOLUME 7.3 fl (7.4-10.4); MONOCYTES % 9.4 % (2.0-8.0); NEUTROPHILS % 70.8 % (40.0-76.0); PLATELET 230 x1000/uL (130-400); RED BLOOD CELL COUNT 3.33 mill/uL (4.2-5.4); RED CELL DISTRIBUTION WIDTH 15.8 % (11.6-14.6)
[2021-08-20 15:21] LABS: CHLORIDE 111 mEq/L (98-107)
[2021-08-20 15:25] LABS: PROTHROMBIN TIME 10.3 sec (9.6-11.0)
[2021-08-20] MEDS ORDERED: ONDANSETRON HCL 4MG/2ML INJ IV NR (17:00)
[2021-08-20] MEDS ORDERED: MORPHINE SULFATE 4 MG/ML CPJ (NOT FOR IM USE) IV NR (17:00)
[2021-08-20] MEDS ORDERED: KETOROLAC 30MG/ML VIAL IV NR (17:00)
[2021-08-20] MEDS ORDERED: TOPUD MT (17:19)
[2021-08-20 18:54] VITALS: BP 146/75
== END 2021-08-20 18:58 | disposition home or self-care (01) ==
LOC: ER 13:34
DX: R10.32 Left lower quadrant pain (principal); R59.0 Localized enlarged lymph nodes; N28.9 Disorder of kidney and ureter, unspecified; I10 Essential (primary) hypertension; E78.00 Pure hypercholesterolemia, unspecified; E11.9 Type 2 diabetes mellitus without complications; Z90.49 Acquired absence of other specified parts of digestive tract; Z90.710 Acquired absence of both cervix and uterus; Z88.1 Allergy status to other antibiotic agents; Z79.4 Long term (current) use of insulin; Z88.0 Allergy status to penicillin
CPT/HCPCS: 36415; 71045; 74176; 80053; 81003; 83690; 85025; 85610; 87086; 93005; 96365; 96375; 99285; J1885; J1956; J2270; J2405; J7030

== ENCOUNTER 2021-11-21 21:53 | Emergency (ER) | payer MEDICARE, MEDICAID ==
[~2021-11-21] VITALS: Ht 175.3 cm; Wt 108.0 kg
[~2021-11-21 21:53] MED LIST changes: +ASPI-1497 PO; +BETH5TAB10 PO; +CEPH250C2 MT; +DOXA2TAB2 PO; +GLIM4TAB36 PO; +TAMS-11 PO; +TOPUD MT
[2021-11-22 05:24] LABS: BASOPHILS % 0.7 % (0.0-2.0); EOSINOPHILS % 2.5 % (0.0-5.0); HEMATOCRIT. 34.1 % (36.0-48.0); HEMOGLOBIN. 11.3 g/dL (12.0-16.0); LYMPHOCYTES % 13.1 % (20.0-50.0); MEAN CORPUSCULAR HEMOGLOBIN 30.2 pg (28.0-32.0); MEAN CORPUSCULAR VOLUME 90.9 fL (81.0-99.0); MEAN PLATELET VOLUME 7.8 fl (7.4-10.4); MONOCYTES % 8.2 % (2.0-8.0); NEUTROPHILS % 75.5 % (40.0-76.0); PLATELET 230 x1000/uL (130-400); RED BLOOD CELL COUNT 3.75 mill/uL (4.2-5.4)
[2021-11-22] MEDS ORDERED: IBUPROFEN 600MG TABLET PO STA (05:26)
[2021-11-22] MEDS ORDERED: ASPIRIN 81MG TABLET PO ONE (05:30)
[2021-11-22 05:42] LABS: CHLORIDE 106 mEq/L (98-107)
[2021-11-22] MEDS ORDERED: ACETAMINOPHEN 325MG TABLET PO ONE (07:30)
[2021-11-22 09:30] VITALS: BP 147/58
== END 2021-11-22 09:48 | disposition home or self-care (01) ==
LOC: ER 21:53
DX: R07.89 Other chest pain (principal); I44.7 Left bundle-branch block, unspecified; E11.65 Type 2 diabetes mellitus with hyperglycemia; I10 Essential (primary) hypertension; E78.00 Pure hypercholesterolemia, unspecified; Z79.4 Long term (current) use of insulin; Z79.84 Long term (current) use of oral hypoglycemic drugs; Z79.899 Other long term (current) drug therapy
CPT/HCPCS: 36415; 71045; 80053; 83880; 84484; 85025; 93005; 99285

== ENCOUNTER 2022-01-12 09:59 | Emergency (ER) | payer MEDICARE, MEDICAID ==
[~2022-01-12] VITALS: Ht 175.3 cm; Wt 108.0 kg
[2022-01-12 10:07] VITALS: BP 115/52
[2022-01-12 13:24] LABS: CLARITY URINE CLOUDY (CLEAR); COLOR URINE YELLOW (YELLOW); KETONES URINE NEGATIVE (NEGATIVE); LEUKOCYTE ESTERASE URINE TRACE (NEGATIVE); NITRITE URINE NEGATIVE (NEGATIVE); OCCULT BLOOD URINE NEGATIVE (NEGATIVE); PROTEIN URINE NEGATIVE (NEGATIVE); SPECIFIC GRAVITY URINE 1.014 (1.005-1.030)
[2022-01-12] MEDS ORDERED: FLUC200T51 MT (14:31)
== END 2022-01-12 14:48 | disposition home or self-care (01) ==
LOC: ER 10:21
DX: N39.0 Urinary tract infection, site not specified (principal); I10 Essential (primary) hypertension; E11.9 Type 2 diabetes mellitus without complications; E78.00 Pure hypercholesterolemia, unspecified; Z90.710 Acquired absence of both cervix and uterus; Z90.49 Acquired absence of other specified parts of digestive tract; Z79.4 Long term (current) use of insulin; Z88.8 Allergy status to other drugs, medicaments and biological substances; Z88.0 Allergy status to penicillin; Z79.82 Long term (current) use of aspirin
CPT/HCPCS: 81003; 99283

== ENCOUNTER 2022-06-06 11:22 | Emergency (ER) | payer MEDICARE, MEDICAID ==
[~2022-06-06] VITALS: Ht 175.3 cm; Wt 109.0 kg
[~2022-06-06 11:22] MED LIST changes: +FLUC200T51 MT
[2022-06-06] MEDS ORDERED: ACETAMINOPHEN 325MG TABLET PO ONE (14:45)
[2022-06-06] MEDS ORDERED: METHOCARBAMOL 750MG TABLET PO SCH (14:45)
[2022-06-06] MEDS ORDERED: KETOROLAC 60MG/2ML VIAL IM ONE (14:45)
[2022-06-06] MEDS ORDERED: LIDOCAINE 5% PATCH TOP SCH (14:45)
[2022-06-06] MEDS ORDERED: LIDO1ADH23 TP (15:21)
[2022-06-06] MEDS ORDERED: TOPUD PO (15:21)
[2022-06-06] MEDS ORDERED: IBUP-2028 MT (15:21)
[2022-06-06] MEDS ORDERED: METH-653 MT (15:21)
[2022-06-06 15:37] VITALS: BP 133/68
== END 2022-06-06 15:39 | disposition home or self-care (01) ==
LOC: ER 11:22
DX: G58.9 Mononeuropathy, unspecified (principal); I10 Essential (primary) hypertension; E78.00 Pure hypercholesterolemia, unspecified; E11.9 Type 2 diabetes mellitus without complications; Z88.0 Allergy status to penicillin; Z79.899 Other long term (current) drug therapy; Z98.890 Other specified postprocedural states
CPT/HCPCS: 96372; 99283; J1885

== ENCOUNTER 2022-08-21 10:33 | Emergency (ER) | payer MEDICARE, MEDICAID ==
[~2022-08-21] VITALS: Ht 175.3 cm; Wt 107.0 kg
[~2022-08-21 10:33] MED LIST changes: +IBUP-2028 MT; +LIDO1ADH23 TP; +METH-653 MT; +TOPUD PO
[2022-08-21 10:47] VITALS: TEMP 97.9; O2SAT 99
[2022-08-21] MEDS ORDERED: IBUPROFEN 600MG TABLET PO ONE (13:00)
[2022-08-21 14:36] VITALS: BP 128/51; PULSE 83; RESP 18
[2022-08-21 14:38] LABS: BASOPHILS % 0.6 % (0.0-2.0); EOSINOPHILS % 0.7 % (0.0-5.0); HEMATOCRIT. 30.2 % (36.0-48.0); HEMOGLOBIN. 9.5 g/dL (12.0-16.0); LYMPHOCYTES % 11.9 % (20.0-50.0); MEAN CORPUSCULAR HEMOGLOBIN 29.1 pg (28.0-32.0); MEAN CORPUSCULAR VOLUME 92.1 fL (81.0-99.0); MONOCYTES % 6.8 % (2.0-8.0); PLATELET 227 x1000/uL (130-400); RED BLOOD CELL COUNT 3.28 mill/uL (4.2-5.4); RED CELL DISTRIBUTION WIDTH 16.7 % (11.6-14.6)
[2022-08-21 14:45] LABS: CHLORIDE 111 mEq/L (98-107)
[2022-08-21] MEDS ORDERED: IBUPROFEN 600MG TABLET PO NR (14:45)
[2022-08-21 14:57] LABS: CREATINE KINASE 125 IU/L (26-192)
[2022-08-21] MEDS ORDERED: CYCL10TA21 MT (15:21)
[2022-08-21] MEDS ORDERED: TOPUD MT (15:21)
== END 2022-08-21 15:59 | disposition home or self-care (01) ==
LOC: ER 10:33
DX: M79.651 Pain in right thigh (principal); N28.9 Disorder of kidney and ureter, unspecified; E11.9 Type 2 diabetes mellitus without complications; E78.00 Pure hypercholesterolemia, unspecified; I10 Essential (primary) hypertension; Z90.49 Acquired absence of other specified parts of digestive tract; Z90.710 Acquired absence of both cervix and uterus; Z79.899 Other long term (current) drug therapy
CPT/HCPCS: 36415; 73552; 80053; 82550; 85025; 99284

== ENCOUNTER 2023-01-16 13:01 | Emergency (ER) | payer MEDICARE, MEDICAID ==
[~2023-01-16] VITALS: Ht 175.3 cm; Wt 105.0 kg
[2023-01-16 13:13] VITALS: O2SAT 100
[2023-01-16] MEDS ORDERED: ACETAMINOPHEN 325MG TABLET PO ONE (14:00)
[2023-01-16 14:32] LABS: BASOPHILS % 0.7 % (0.0-2.0); EOSINOPHILS % 2.1 % (0.0-5.0); HEMATOCRIT. 28.8 % (36.0-48.0); HEMOGLOBIN. 9.7 g/dL (12.0-16.0); LYMPHOCYTES % 13.1 % (20.0-50.0); MEAN CORPUSCULAR HEMOGLOBIN 29.9 pg (28.0-32.0); MEAN CORPUSCULAR HGB CONC 33.7 g/dL (31.0-37.0); MEAN CORPUSCULAR VOLUME 88.8 fL (81.0-99.0); MEAN PLATELET VOLUME 7.9 fl (7.4-10.4); MONOCYTES % 8.5 % (2.0-8.0); NEUTROPHILS % 75.6 % (40.0-76.0); PLATELET 211 x1000/uL (130-400); RED BLOOD CELL COUNT 3.24 mill/uL (4.2-5.4); RED CELL DISTRIBUTION WIDTH 17.1 % (11.6-14.6); WHITE BLOOD COUNT 9.8 x1000/uL (4.5-11.0)
[2023-01-16 14:48] LABS: ALANINE AMINOTRANSFERASE 26 IU/L (10-49); ALBUMIN 3.6 g/dL (3.2-4.8); ASPARTATE AMINOTRANSFERASE 19 IU/L (<34); BILIRUBIN TOTAL 0.5 mg/dL (0.1-1.0); CALCIUM 9.1 mg/dL (8.7-10.4); CARBON DIOXIDE 22 mEq/L (21-32); CHLORIDE 110 mEq/L (98-107); CREATININE 1.4 mg/dL (0.6-1.0); GLUCOSE 177 mg/dL (70-105); POTASSIUM 4.1 mEq/L (3.5-5.1); PROTEIN TOTAL 6.5 g/dL (6.0-8.3); SODIUM 140 mEq/L (136-145); UREA NITROGEN BLOOD 26 mg/dL (9-23)
[2023-01-16 17:28] LABS: CLARITY URINE CLOUDY (CLEAR); COLOR URINE YELLOW (YELLOW); GLUCOSE URINE NEGATIVE (NEGATIVE); KETONES URINE NEGATIVE (NEGATIVE); LEUKOCYTE ESTERASE URINE NEGATIVE (NEGATIVE); NITRITE URINE NEGATIVE (NEGATIVE); OCCULT BLOOD URINE NEGATIVE (NEGATIVE); PROTEIN URINE NEGATIVE (NEGATIVE); SPECIFIC GRAVITY URINE 1.016 (1.005-1.030); UROBILINOGEN URINE 0.2 E.U./dL (0.2-1.0)
[2023-01-16 17:29] LABS: YEAST URINE NONE SEEN
[2023-01-16 18:00] LABS: BACTERIA URINE 3+; SQUAMOUS EPITHELIAL CELL URINE 3+ /lpf (RARE/1+)
[2023-01-16 18:58] VITALS: BP 142/52; PULSE 68; RESP 18; TEMP 98.2
== END 2023-01-16 19:37 | disposition home or self-care (01) ==
LOC: ER 13:01
DX: M54.50 Low back pain, unspecified (principal); R10.32 Left lower quadrant pain; E78.00 Pure hypercholesterolemia, unspecified; E11.9 Type 2 diabetes mellitus without complications; I10 Essential (primary) hypertension; Z88.1 Allergy status to other antibiotic agents; Z88.0 Allergy status to penicillin; Z79.899 Other long term (current) drug therapy; Z90.49 Acquired absence of other specified parts of digestive tract
CPT/HCPCS: 36415; 80053; 81003; 85025; 99283

== ENCOUNTER 2023-01-25 09:37 | Emergency (ER) | payer MEDICARE, MEDICAID ==
[~2023-01-25] VITALS: Ht 172.7 cm; Wt 91.0 kg
[2023-01-25 09:43] VITALS: O2SAT 99
[2023-01-25] MEDS ORDERED: ACETAMINOPHEN 325MG TABLET PO STA (10:12)
[2023-01-25 10:16] LABS: BASOPHILS % 0.6 % (0.0-2.0); EOSINOPHILS % 1.5 % (0.0-5.0); HEMATOCRIT. 31.2 % (36.0-48.0); HEMOGLOBIN. 10.2 g/dL (12.0-16.0); LYMPHOCYTES % 11.6 % (20.0-50.0); MEAN CORPUSCULAR HEMOGLOBIN 29.1 pg (28.0-32.0); MEAN CORPUSCULAR HGB CONC 32.5 g/dL (31.0-37.0); MEAN CORPUSCULAR VOLUME 89.4 fL (81.0-99.0); MONOCYTES % 7.5 % (2.0-8.0); NEUTROPHILS % 78.8 % (40.0-76.0); RED BLOOD CELL COUNT 3.49 mill/uL (4.2-5.4); RED CELL DISTRIBUTION WIDTH 16.9 % (11.6-14.6)
[2023-01-25 10:27] LABS: DIFFERENTIAL COMMENT 1
[2023-01-25 11:00] LABS: ALANINE AMINOTRANSFERASE 18 IU/L (10-49); ALBUMIN 3.9 g/dL (3.2-4.8); ASPARTATE AMINOTRANSFERASE 17 IU/L (<34); BILIRUBIN TOTAL 0.5 mg/dL (0.1-1.0); CALCIUM 9.1 mg/dL (8.7-10.4); CARBON DIOXIDE 24 mEq/L (21-32); CHLORIDE 107 mEq/L (98-107); CREATININE 1.5 mg/dL (0.6-1.0); GLUCOSE 235 mg/dL (70-105); POTASSIUM 4.4 mEq/L (3.5-5.1); PROTEIN TOTAL 6.9 g/dL (6.0-8.3); SODIUM 141 mEq/L (136-145); UREA NITROGEN BLOOD 24 mg/dL (9-23)
[2023-01-25 11:46] LABS: PLATELET 240 x1000/uL (130-400)
[2023-01-25 11:59] VITALS: BP 131/50; PULSE 60; RESP 16; TEMP 97.9
[2023-01-25 12:44] LABS: CLARITY URINE CLOUDY (CLEAR); COLOR URINE YELLOW (YELLOW)
[2023-01-25 12:45] LABS: BACTERIA URINE 1+; GLUCOSE URINE NEGATIVE (NEGATIVE); KETONES URINE NEGATIVE (NEGATIVE); LEUKOCYTE ESTERASE URINE NEGATIVE (NEGATIVE); NITRITE URINE NEGATIVE (NEGATIVE); OCCULT BLOOD URINE NEGATIVE (NEGATIVE); PROTEIN URINE NEGATIVE (NEGATIVE); SPECIFIC GRAVITY URINE 1.015 (1.005-1.030); SQUAMOUS EPITHELIAL CELL URINE 3+ /lpf (RARE/1+); UROBILINOGEN URINE 0.2 E.U./dL (0.2-1.0); YEAST URINE FEW
[2023-01-25 12:46] LABS: RBC URINE 0-2 /hpf (0-2)
[2023-01-25] MEDS ORDERED: TOPUD MT (12:55)
== END 2023-01-25 13:49 | disposition home or self-care (01) ==
LOC: ER 09:53
DX: R10.32 Left lower quadrant pain (principal); E11.9 Type 2 diabetes mellitus without complications; I10 Essential (primary) hypertension; E78.00 Pure hypercholesterolemia, unspecified; Z88.0 Allergy status to penicillin; Z88.1 Allergy status to other antibiotic agents; Z79.899 Other long term (current) drug therapy; Z90.49 Acquired absence of other specified parts of digestive tract
CPT/HCPCS: 36415; 74176; 80053; 81003; 85025; 99284

== ENCOUNTER 2023-01-29 10:39 | Emergency (ER) | payer MEDICARE, MEDICAID ==
[~2023-01-29] VITALS: Ht 180.3 cm; Wt 104.0 kg
[2023-01-29 10:45] VITALS: BP 123/49; PULSE 60; RESP 20; TEMP 98.2; O2SAT 96
[2023-01-29 11:26] LABS: CLARITY URINE CLOUDY (CLEAR); COLOR URINE YELLOW (YELLOW); GLUCOSE URINE NEGATIVE (NEGATIVE); KETONES URINE NEGATIVE (NEGATIVE); LEUKOCYTE ESTERASE URINE NEGATIVE (NEGATIVE); NITRITE URINE NEGATIVE (NEGATIVE); OCCULT BLOOD URINE NEGATIVE (NEGATIVE); PH URINE 5.5 (4.5-8.0); PROTEIN URINE NEGATIVE (NEGATIVE); SPECIFIC GRAVITY URINE 1.017 (1.005-1.030); UROBILINOGEN URINE 0.2 E.U./dL (0.2-1.0)
[2023-01-29] MEDS ORDERED: LIDO700A15 TP (12:00)
[2023-01-29] MEDS ORDERED: CYCL5TAB MT (12:00)
[2023-01-29 12:08] LABS: BACTERIA URINE 2+; RBC URINE NONE SEEN /hpf (0-2); SQUAMOUS EPITHELIAL CELL URINE 2+ /lpf (RARE/1+); WBC URINE 0-2 /hpf (0-2); YEAST URINE FEW
== END 2023-01-29 12:28 | disposition home or self-care (01) ==
LOC: ER 10:54
DX: M54.50 Low back pain, unspecified (principal); E11.9 Type 2 diabetes mellitus without complications; E78.00 Pure hypercholesterolemia, unspecified; I10 Essential (primary) hypertension; Z87.19 Personal history of other diseases of the digestive system; Z90.49 Acquired absence of other specified parts of digestive tract; Z90.710 Acquired absence of both cervix and uterus; Z79.899 Other long term (current) drug therapy
CPT/HCPCS: 81003; 99283

== ENCOUNTER 2023-04-03 07:55 | Emergency (ER) | payer MEDICARE, MEDICAID ==
[~2023-04-03] VITALS: Ht 175.3 cm; Wt 106.0 kg
[~2023-04-03 07:55] MED LIST changes: +CYCL5TAB MT; +LIDO700A15 TP
[2023-04-03 08:04] VITALS: O2SAT 99
[2023-04-03 08:39] LABS: BASOPHILS % 0.4 % (0.0-2.0); EOSINOPHILS % 1.5 % (0.0-5.0); HEMATOCRIT. 31.4 % (36.0-48.0); HEMOGLOBIN. 10.1 g/dL (12.0-16.0); MEAN CORPUSCULAR HEMOGLOBIN 28.9 pg (28.0-32.0); MEAN CORPUSCULAR HGB CONC 32.2 g/dL (31.0-37.0); MEAN CORPUSCULAR VOLUME 89.8 fL (81.0-99.0); MEAN PLATELET VOLUME 8.2 fl (7.4-10.4); MONOCYTES % 7.7 % (2.0-8.0); NEUTROPHILS % 76.4 % (40.0-76.0); PLATELET 219 x1000/uL (130-400); RED BLOOD CELL COUNT 3.49 mill/uL (4.2-5.4); RED CELL DISTRIBUTION WIDTH 16.4 % (11.6-14.6); WHITE BLOOD COUNT 8.4 x1000/uL (4.5-11.0)
[2023-04-03 09:01] LABS: ALANINE AMINOTRANSFERASE 9 IU/L (10-49); ALBUMIN 3.8 g/dL (3.2-4.8); ASPARTATE AMINOTRANSFERASE 13 IU/L (<34); BILIRUBIN TOTAL 0.4 mg/dL (0.1-1.0); CALCIUM 8.8 mg/dL (8.7-10.4); CARBON DIOXIDE 25 mEq/L (21-32); CHLORIDE 107 mEq/L (98-107); CREATININE 1.6 mg/dL (0.6-1.0); GLUCOSE 241 mg/dL (70-105); POTASSIUM 4.3 mEq/L (3.5-5.1); PROTEIN TOTAL 6.7 g/dL (6.0-8.3); SODIUM 140 mEq/L (136-145); TROPONIN I HIGH SENSITIVITY 4 ng/L (3.0-34); UREA NITROGEN BLOOD 28 mg/dL (9-23)
[2023-04-03 12:29] LABS: TROPONIN I HIGH SENSITIVITY 4 ng/L (3.0-34)
[2023-04-03 15:26] LABS: CLARITY URINE CLOUDY (CLEAR); COLOR URINE YELLOW (YELLOW); GLUCOSE URINE NEGATIVE (NEGATIVE); KETONES URINE NEGATIVE (NEGATIVE); LEUKOCYTE ESTERASE URINE 1+ (NEGATIVE); NITRITE URINE NEGATIVE (NEGATIVE); OCCULT BLOOD URINE NEGATIVE (NEGATIVE); PH URINE 5.5 (4.5-8.0); PROTEIN URINE NEGATIVE (NEGATIVE); SPECIFIC GRAVITY URINE 1.016 (1.005-1.030)
[2023-04-03 15:39] VITALS: BP 125/56; PULSE 67; RESP 18; TEMP 98.7
[2023-04-03 15:45] LABS: BACTERIA URINE 1+; RBC URINE NONE SEEN /hpf (0-2); SQUAMOUS EPITHELIAL CELL URINE FEW /lpf (RARE/1+)
== END 2023-04-03 16:14 | disposition home or self-care (01) ==
LOC: ER 07:55
DX: R07.9 Chest pain, unspecified (principal); E11.9 Type 2 diabetes mellitus without complications; E78.00 Pure hypercholesterolemia, unspecified; I10 Essential (primary) hypertension; K80.20 Calculus of gallbladder without cholecystitis without obstruction; Z90.49 Acquired absence of other specified parts of digestive tract; Z90.710 Acquired absence of both cervix and uterus; Z88.0 Allergy status to penicillin; Z88.8 Allergy status to other drugs, medicaments and biological substances
CPT/HCPCS: 36415; 71045; 80053; 81003; 84484; 85025; 87077; 87186; 93005; 99285

== ENCOUNTER 2024-03-31 11:04 | Emergency (ER) | payer MEDICARE, MEDICAID ==
[~2024-03-31] VITALS: Ht 175.3 cm; Wt 106.6 kg
[~2024-03-31 11:04] MED LIST changes: -CYCL5TAB MT; +CYCL5TAB3 MT; +HYDR100T11 MT; -HYDR100T26 MT
[2024-03-31 11:08] VITALS: O2SAT 97
[2024-03-31 11:13] VITALS: BP 111/40; PULSE 80; RESP 16; TEMP 37.1; O2SAT 98
== END 2024-03-31 17:32 | disposition home or self-care (01) ==
LOC: ER 11:04
DX: S09.90XA Unspecified injury of head, initial encounter (principal); M25.532 Pain in left wrist; M79.675 Pain in left toe(s); I10 Essential (primary) hypertension; E11.9 Type 2 diabetes mellitus without complications; Z79.899 Other long term (current) drug therapy; Z79.82 Long term (current) use of aspirin; Z88.0 Allergy status to penicillin; Z79.84 Long term (current) use of oral hypoglycemic drugs; W01.0XXA Fall on same level from slipping, tripping and stumbling without subsequent striking against object, initial encounter; Y93.01 Activity, walking, marching and hiking; Y92.89 Other specified places as the place of occurrence of the external cause; Y99.8 Other external cause status
CPT/HCPCS: 73110; 73130; 73562; 73660; 99284

== ENCOUNTER 2024-07-04 15:12 | Emergency (ER) | payer MEDICARE, MEDICAID ==
[~2024-07-04] VITALS: Ht 175.3 cm; Wt 102.0 kg
[~2024-07-04 15:12] MED LIST changes: +LIDO-53 TP; -LIDO700A15 TP; -TAMS-11 PO; +TAMS-54 PO
[2024-07-04 15:27] VITALS: O2SAT 97
[2024-07-04 16:59] LABS: CLARITY URINE TURBID (CLEAR); COLOR URINE YELLOW (YELLOW); GLUCOSE URINE 3+ (NEGATIVE); KETONES URINE NEGATIVE (NEGATIVE); LEUKOCYTE ESTERASE URINE 3+ (NEGATIVE); NITRITE URINE NEGATIVE (NEGATIVE); OCCULT BLOOD URINE 1+ (NEGATIVE); PH URINE 5.5 (4.5-8.0); PROTEIN URINE 1+ (NEGATIVE); SPECIFIC GRAVITY URINE 1.023 (1.005-1.030)
[2024-07-04 17:52] LABS: BACTERIA URINE 2+
[2024-07-04 17:53] LABS: SQUAMOUS EPITHELIAL CELL URINE 1+ /lpf (RARE/1+); WBC URINE TNTC /hpf (0-2); YEAST URINE 3+
[2024-07-04] MEDS ORDERED: SULF1TAB44 MT (19:12)
[2024-07-04] MEDS ORDERED: FLUC150T46 MT (19:12)
[2024-07-04 19:21] VITALS: BP 120/50; PULSE 84; RESP 18; TEMP 36.8; O2SAT 98
== END 2024-07-04 19:26 | disposition home or self-care (01) ==
LOC: ER 15:12
DX: N39.0 Urinary tract infection, site not specified (principal); E11.9 Type 2 diabetes mellitus without complications; I10 Essential (primary) hypertension; Z16.23 Resistance to quinolones and fluoroquinolones; Z88.0 Allergy status to penicillin; Z79.899 Other long term (current) drug therapy; Z79.82 Long term (current) use of aspirin; Z98.890 Other specified postprocedural states
CPT/HCPCS: 81003; 99283